=== PATIENT | female | born 1955 | race Caucasian/White ===

== ENCOUNTER → 2021-08-14 | Day surgery (SDC) | payer OTHER ==
[2021-08-11 12:35] LABS: COVID AG,FIA SOURCE NASOPHARYNGEAL
[~2021-08-14] VITALS: Ht 154.9 cm; Wt 93.6 kg
[~2021-08-14] MED LIST: ALBU8HFA IH; ALBUTEROL SULFATE 2.5 MG/0.5 ML NEB SOLUTION NEB ONE; AMIT-166 PO; AMLO-257 PO; ATOR40TA28 PO; BENZOCAINE 20% 50 MCG/SPRAY 57 GM TP ONE; EPINEPHrine 1:10,000 [1 MG/10 ML] SYRINGE ONE; FAMO20 PO; FentaNYL CITRATE PF 100 MCG/2 ML VIAL ONE; GABA-1181 PO; HYDR-3831 PO; IPRATROPIUM BROMIDE 0.5 MG/2.5 ML NEB SOLUTION NEB ONE; LEVO75 PO; LIDOCAINE 2% 30 ML JELLY TP ONE; LIDOCAINE 4% 50 ML SOLUTION TP ONE; MECL-134 PO; MIDAZOLAM HCL 5 MG/ML VIAL ONE; MONT-35 PO; MethylPREDNISolone SOD SUCC 125 MG/2 ML VIAL IVP ONE; MethylPREDNISolone SOD SUCC 125 MG/2 ML VIAL ONE; OLME20TA10 PO; OXYGEN THERAPY IH SCH; SEMA1PEN3 SQ; SODIUM CHLORIDE 0.9% 1,000 ML IV ONE; SODIUM CHLORIDE 0.9% 1,000 ML ONE; TRAZADONE PO
[2021-08-14 07:31] LABS: GLUCOMETER DEV NAME(LOC) SDS.; GLUCOSE,POINT OF CARE 97 MG/DL (70-110)
== END | disposition still patient (30) ==
LOC: SURGERY 06:16
PROVIDERS: ATTEND Internal Medicine Critical Care Medicine
DX: J38.4 Edema of larynx (principal); B37.0 Candidal stomatitis; J44.9 Chronic obstructive pulmonary disease, unspecified; F32.9 Major depressive disorder, single episode, unspecified; F41.9 Anxiety disorder, unspecified; E11.9 Type 2 diabetes mellitus without complications; Z79.899 Other long term (current) drug therapy; Z88.0 Allergy status to penicillin; Z88.8 Allergy status to other drugs, medicaments and biological substances; Z88.6 Allergy status to analgesic agent; Z91.040 Latex allergy status; Z90.710 Acquired absence of both cervix and uterus; Z98.41 Cataract extraction status, right eye; Z98.42 Cataract extraction status, left eye; Z20.822 Contact with and (suspected) exposure to COVID-19; Z98.890 Other specified postprocedural states
CPT/HCPCS: 31623; 31624; 71045; 82962; 87015; 87070; 87101; 87206; 87220; 87426; 88112; 88184; 88185; 88305; 88312; 94640; C9803; J2250; J2930; J3010; J7030; J0171; J7613; Z7610

== ENCOUNTER 2024-08-10 07:25 | Day surgery (SDC) | payer OTHER ==
[~2024-08-10] VITALS: Ht 154.9 cm; Wt 64.5 kg
[~2024-08-10 07:25] MED LIST changes: +ALBU18HF12 IH; -ALBU8HFA IH; -ALBUTEROL SULFATE 2.5 MG/0.5 ML NEB SOLUTION NEB ONE; -AMIT-166 PO; +AMIT10TA7 PO; -BENZOCAINE 20% 50 MCG/SPRAY 57 GM TP ONE; -EPINEPHrine 1:10,000 [1 MG/10 ML] SYRINGE ONE; -FentaNYL CITRATE PF 100 MCG/2 ML VIAL ONE; -IPRATROPIUM BROMIDE 0.5 MG/2.5 ML NEB SOLUTION NEB ONE; -LIDOCAINE 2% 30 ML JELLY TP ONE; -LIDOCAINE 4% 50 ML SOLUTION TP ONE; -MIDAZOLAM HCL 5 MG/ML VIAL ONE; -MethylPREDNISolone SOD SUCC 125 MG/2 ML VIAL IVP ONE; -MethylPREDNISolone SOD SUCC 125 MG/2 ML VIAL ONE; -OLME20TA10 PO; +OLME20TA73 PO; -OXYGEN THERAPY IH SCH; -SODIUM CHLORIDE 0.9% 1,000 ML IV ONE; -SODIUM CHLORIDE 0.9% 1,000 ML ONE
[2024-08-10] MEDS: SODIUM CHLORIDE 0.9% 1,000 ML IV ONE (08:27)
[2024-08-10] MEDS ORDERED: FLUO20SO24 PO (08:32)
[2024-08-10] MEDS ORDERED: MIDAZOLAM HCL 2 MG/2 ML VIAL ONE (08:47)
[2024-08-10] MEDS ORDERED: FentaNYL CITRATE PF 100 MCG/2 ML VIAL ONE (08:47)
[2024-08-10 09:55] VITALS: PULSE 74; RESP 18; O2SAT 100
[2024-08-10] MEDS ORDERED: MethylPREDNISolone SOD SUCC 125 MG/2 ML VIAL ONE (09:57)
[2024-08-10] MEDS: MethylPREDNISolone SOD SUCC 125 MG/2 ML VIAL IVP ONE (10:26)
== END 2024-08-10 13:15 | disposition left against medical advice (07) ==
LOC: SURGERY 07:25
PROVIDERS: ATTEND Internal Medicine Critical Care Medicine
DX: R05.3 Chronic cough (principal); J44.9 Chronic obstructive pulmonary disease, unspecified; B37.0 Candidal stomatitis; J38.4 Edema of larynx; Z88.6 Allergy status to analgesic agent; F32.A Depression, unspecified; F41.9 Anxiety disorder, unspecified; K21.9 Gastro-esophageal reflux disease without esophagitis; Z88.8 Allergy status to other drugs, medicaments and biological substances; Z91.040 Latex allergy status; Z88.0 Allergy status to penicillin; Z98.890 Other specified postprocedural states; Z90.710 Acquired absence of both cervix and uterus
CPT/HCPCS: 31623; 87206; 87101; 87220; 87070; 88108; 87015; 71045; 31624; J3010; J2250; J2919